=== PATIENT | female | born 1950 | race Caucasian/White ===

== ENCOUNTER → 2017-09-25 | Outpatient (CLI) | payer BC ==
[2014-10-10 16:44] VITALS: BP 170/87
[~2017-09-25] MED LIST: ASPERDRINK81 MG PO; CALCIUM CARB W/1 TAB PO; CELEBREX100 MG PO; DEXILANT60 MG PO; ESTROGENS0.3 MG PO; FLONASE0.05 MG/AC NS; HCTZ 25MG25 MG PO; HYDRODIURIL25 MG PO; KLOR-CON20 MEQ PO; LISINOPRIL40 MG PO; METFORMIN500 MG PO; MIRAPEX0.125 MG PO; NORCO 325 MG-51 TAB PO; PRAVASTATIN40 MG PO; PREMARIN0.3 MG PO; PRINIVIL10 MG PO; SAVELLA50 MG PO; SINGULAIR10 MG PO; TEMOVATE0.05% TP; ZOFRAN ODT8 MG PO; ZYRTEC10 MG PO
== END ==
LOC: RAD 15:46
DX: R22.42 Localized swelling, mass and lump, left lower limb (principal)

== ENCOUNTER → 2018-10-14 | Outpatient (CLI) | payer BC ==
[~2018-10-14] VITALS: Ht 165.1 cm; Wt 104.5 kg
[2018-10-14 13:01] LABS: HEMATOCRIT 42.2 % (37.0-47.0); HEMOGLOBIN 14.3 g/dL (12.5-16.0); MEAN PLATELET VOLUME 10.6 fl (7.4-10.4); RED BLOOD COUNT 4.73 M/mm3 (4.10-5.30); WHITE BLOOD COUNT 9.7 K/mm3 (4.8-10.8)
[2018-10-14 13:13] LABS: ALBUMIN 3.7 g/dL (3.4-4.8); CALCIUM 9.2 mg/dL (8.3-10.5); TOTAL BILIRUBIN 0.6 mg/dL (0.2-1.2); TOTAL PROTEIN 6.5 g/dL (6.2-8.1)
[2018-10-14 13:19] VITALS: BP 127/58
[2018-10-14 13:22] LABS: POTASSIUM 2.9 mmol/L (3.5-5.1)
[2018-10-14 13:23] LABS: URINE APPEARANCE HAZY; URINE BILIRUBIN NEGATIVE (NEGATIVE); URINE BLOOD 50 ery/uL (NEGATIVE); URINE COLOR YELLOW; URINE GLUCOSE NEGATIVE (NEGATIVE); URINE KETONE NEGATIVE (NEGATIVE); URINE LEUKOCYTE ESTERASE NEGATIVE (NEGATIVE); URINE NITRATE NEGATIVE (NEGATIVE); URINE PROTEIN(semi-quant) TRACE mg/dL (NEGATIVE); URINE UROBILINOGEN NORMAL (NORMAL)
--- NOTE | 2018-10-14 16:17 | NUR ---
PT SENT FROM [facility], JACOB HENDERSON APRN GIVES ORDERS FOR FLUIDS AND LABS. LABS RETURNED AND REPORTED TO ANTONELLA LING. NEW ORDERS GIVEN FOR PO K+, AND ANOTHER 500ML OF NS. BOTH GIVEN WITHOUT DIFFICULTY. PT DC'D TO HOME TO REST. CLINIC WILL CALL HER WITH INFORMAITON ON FOLLOW UP PER JACOB HENDERSON.
[2018-10-14 16:24] VITALS: BP 164/75
== END ==
LOC: AMSURD 11:44
PROVIDERS: Family Medicine
DX: E86.0 Dehydration (principal)
CPT/HCPCS: J7030; J7040

== ENCOUNTER 2020-01-29 14:35 | Inpatient (IN) | payer MEDICARE, BC ==
[~2020-01-29] VITALS: Ht 165.1 cm; Wt 104.0 kg
[2020-01-29] MEDS ORDERED: [UNRECOGNIZED DRUG - OTHER] NAS (15:31)
[2020-01-29] MEDS ORDERED: CELEBREX 200MG200 MG PO (15:32)
[2020-01-29] MEDS ORDERED: CLOPIDOGREL PO (15:32)
[2020-01-29] MEDS ORDERED: ADULT LOW DOSE81 MG PO (15:32)
[2020-01-29] MEDS ORDERED: NEURONTIN300 M1 PO (15:32)
[2020-01-29] MEDS ORDERED: GOOD NEIGHBOR M25 M1 PO (15:34)
[2020-01-29] MEDS ORDERED: ROXICODONE 55 MG/TAB PO (15:34)
[2020-01-29] MEDS ORDERED: DOCUSATE SODIUM1 TA3 PO (15:35)
[2020-01-29] MEDS ORDERED: ZANAFLEX CAPSULE2 MG PO (15:36)
[2020-01-29] MEDS ORDERED: LIPITOR20 M2 PO (15:36)
[2020-01-29 15:37] VITALS: BP 117/66
[2020-01-29] MEDS ORDERED: WELLBUTRIN SR150 M3 PO (15:37)
[2020-01-29] MEDS ORDERED: CALCIUM CARB W/1 TA1 PO (15:37)
[2020-01-29] MEDS ORDERED: CLOBETASOL PROP15 GM TP (15:38)
[2020-01-29] MEDS ORDERED: ATHLETE'S FOOT1% TP (15:38)
[2020-01-29] MEDS ORDERED: LEXAPRO 10MG10 MG PO (15:41)
[2020-01-29] MEDS ORDERED: ESTRACE1 M1 PO (15:42)
[2020-01-29] MEDS ORDERED: MAG64 110 MG-181 ECT PO (15:44)
[2020-01-29] MEDS ORDERED: HCTZ 25MG25 MG PO (15:44)
[2020-01-29] MEDS ORDERED: COZAAR 50MG50 MG/TAB PO (15:44)
[2020-01-29] MEDS ORDERED: OMEPRAZOLE40 MG PO (15:45)
[2020-01-29] MEDS ORDERED: K-TAB20 MEQ PO (15:46)
[2020-01-29] MEDS ORDERED: SINUS RINSE PR1 EACH NS (15:46)
[2020-01-29 15:51] LABS: ALBUMIN 3.4 g/dL (3.4-4.8); POTASSIUM 4.7 mmol/L (3.5-5.1)
[2020-01-29 15:52] LABS: CALCIUM 8.2 mg/dL (8.3-10.5)
[2020-01-29 15:53] LABS: TOTAL PROTEIN 6.3 g/dL (6.2-8.1)
[2020-01-29 15:55] LABS: TOTAL BILIRUBIN 0.8 mg/dL (0.2-1.2)
[2020-01-29 18:04] VITALS: BP 117/66
[2020-01-29 18:45] LABS: URINE APPEARANCE CLEAR; URINE BILIRUBIN NEGATIVE (NEGATIVE); URINE BLOOD 250 ery/uL (NEGATIVE); URINE COLOR LIGHT YELLOW; URINE GLUCOSE NEGATIVE (NEGATIVE); URINE KETONE NEGATIVE (NEGATIVE); URINE LEUKOCYTE ESTERASE NEGATIVE (NEGATIVE); URINE NITRATE NEGATIVE (NEGATIVE); URINE PROTEIN(semi-quant) TRACE mg/dL (NEGATIVE); URINE UROBILINOGEN NORMAL (NORMAL); URINE WBC 0-1 /hpf (0-3)
[2020-01-30 06:23] VITALS: BP 134/78
[2020-01-30 08:08] LABS: EOS # 0.1 (0.04-0.40); EOS % 1.3 % (1.0-5.0); HEMATOCRIT 33.9 % (37.0-47.0); HEMOGLOBIN 11.1 g/dL (12.5-16.0); LYMPH# 1.3 (1.50-4.00); MEAN CELL VOLUME 94 fl (78-100); MEAN CORPUSCULAR HEMOGLOBIN 31 pg (27-31); MEAN CORPUSCULAR HGB CONC 33 g/dL (33-37); MEAN PLATELET VOLUME 9.8 fl (7.4-10.4); MONO # 0.7 (0.20-0.80); NEU # 7.4 (1.40-6.50); PLATELET COUNT 254 K/mm3 (130-400); RED BLOOD COUNT 3.62 M/mm3 (4.10-5.30); RED CELL DISTRIBUTION WIDTH 12.9 % (11.5-14.5); WHITE BLOOD COUNT 9.6 K/mm3 (4.8-10.8)
[2020-01-30 17:59] VITALS: BP 166/90
[2020-01-31 05:50] VITALS: BP 139/65
[2020-01-31 17:52] VITALS: BP 189/83
[2020-02-01 05:53] VITALS: BP 179/79
[2020-02-01 10:00] LABS: EOS # 0.2 (0.04-0.40); EOS % 3.4 % (1.0-5.0); HEMATOCRIT 34.3 % (37.0-47.0); HEMOGLOBIN 11.3 g/dL (12.5-16.0); LYMPH# 1.3 (1.50-4.00); MEAN CELL VOLUME 95 fl (78-100); MEAN CORPUSCULAR HEMOGLOBIN 31 pg (27-31); MEAN CORPUSCULAR HGB CONC 33 g/dL (33-37); MEAN PLATELET VOLUME 9.5 fl (7.4-10.4); MONO # 0.6 (0.20-0.80); NEU # 3.4 (1.40-6.50); PLATELET COUNT 265 K/mm3 (130-400); RED BLOOD COUNT 3.63 M/mm3 (4.10-5.30); RED CELL DISTRIBUTION WIDTH 13.1 % (11.5-14.5); WHITE BLOOD COUNT 5.6 K/mm3 (4.8-10.8)
[2020-02-01 10:07] LABS: POTASSIUM 4.1 mmol/L (3.5-5.1)
[2020-02-01 10:08] LABS: CALCIUM 9.2 mg/dL (8.3-10.5)
[2020-02-01 10:59] LABS: ERYTHROCYTE SEDIMENTATION RATE 73 mm/hr (0-30)
[2020-02-01 18:14] VITALS: BP 166/89
[2020-02-02 05:26] VITALS: BP 175/84
[2020-02-02 17:21] VITALS: BP 148/86
[2020-02-03 05:26] VITALS: BP 148/80
[2020-02-03 17:18] VITALS: BP 165/82
[2020-02-04 05:34] VITALS: BP 156/82
[2020-02-04 17:56] VITALS: BP 183/81
[2020-02-04 17:57] VITALS: BP 180/76
[2020-02-04 20:00] VITALS: BP 169/77
[2020-02-05 05:41] VITALS: BP 166/79
[2020-02-05 17:08] VITALS: BP 170/82
[2020-02-06 05:49] VITALS: BP 158/69
[2020-02-06 17:10] VITALS: BP 157/79
[2020-02-07 05:52] VITALS: BP 136/60
[2020-02-07 18:30] VITALS: BP 119/74
[2020-02-08 05:42] VITALS: BP 143/66
[2020-02-08 17:42] VITALS: BP 170/71
[2020-02-09 05:25] VITALS: BP 152/75
[2020-02-09 17:43] VITALS: BP 115/76
[2020-02-10 05:24] VITALS: BP 150/76
[2020-02-10 17:30] VITALS: BP 163/86
== END 2020-02-10 17:15 | disposition home or self-care (01) | DRG 561 ==
LOC: MED/SURG 14:35
PROVIDERS: Family Medicine; ADMIT Nurse Practitioner Family
DX: Z47.1 Aftercare following joint replacement surgery (principal); K21.9 Gastro-esophageal reflux disease without esophagitis; I10 Essential (primary) hypertension; M79.7 Fibromyalgia; G47.33 Obstructive sleep apnea (adult) (pediatric); E11.9 Type 2 diabetes mellitus without complications; J32.9 Chronic sinusitis, unspecified; G89.29 Other chronic pain; G25.81 Restless legs syndrome; M54.42 Lumbago with sciatica, left side; R53.81 Other malaise; E78.5 Hyperlipidemia, unspecified; Z79.82 Long term (current) use of aspirin; Z79.891 Long term (current) use of opiate analgesic; Z79.84 Long term (current) use of oral hypoglycemic drugs; Z86.73 Personal history of transient ischemic attack (TIA), and cerebral infarction without residual deficits; Z96.653 Presence of artificial knee joint, bilateral; Z87.891 Personal history of nicotine dependence; Z88.0 Allergy status to penicillin; Z88.5 Allergy status to narcotic agent
CPT/HCPCS: J1650; J1815

== ENCOUNTER 2020-04-26 10:30 | Outpatient (RCR) | payer MEDICARE, BC ==
[~2020-04-26 10:30] MED LIST changes: +ADULT LOW DOSE81 MG PO; +ATHLETE'S FOOT1% TP; +CALCIUM CARB W/1 TA1 PO; +CELEBREX 200MG200 MG PO; +CLOBETASOL PROP15 GM TP; +CLOPIDOGREL PO; +COZAAR 50MG50 MG/TAB PO; +DOCUSATE SODIUM1 TA3 PO; +ESTRACE1 M1 PO; +GOOD NEIGHBOR M25 M1 PO; +K-TAB20 MEQ PO; +LEXAPRO 10MG10 MG PO; +LIPITOR20 M2 PO; +MAG64 110 MG-181 ECT PO; +NEURONTIN300 M1 PO; +OMEPRAZOLE40 MG PO; +ROXICODONE 55 MG/TAB PO; +SINUS RINSE PR1 EACH NS; +WELLBUTRIN SR150 M3 PO; +ZANAFLEX CAPSULE2 MG PO; +[UNRECOGNIZED DRUG - OTHER] NAS
== END 2020-04-26 11:00 | disposition home or self-care (01) ==
LOC: PT 10:30
DX: M17.11 Unilateral primary osteoarthritis, right knee (principal); Z96.651 Presence of right artificial knee joint

== ENCOUNTER 2020-04-29 14:00 | Outpatient (RCR) | payer MEDICARE, BC | END 2020-05-17 | disposition home or self-care (01) | LOC: OT | DX: R20.0 Anesthesia of skin (principal) ==

== ENCOUNTER 2020-10-05 15:44 | Emergency (ER) | payer MEDICARE, BC ==
[~2020-10-05 15:44] MED LIST changes: -CALCIUM CARB W/1 TA1 PO; +CALCIUM WITH VI1 TA1 PO
[2020-10-05] MEDS ORDERED: CYCLOBENZAPRINE10 M1 PO (16:11)
[2020-10-05] MEDS ORDERED: WELLBUTRIN XL150 M2 PO (16:11)
[2020-10-05] MEDS ORDERED: ATORVASTATIN CA20 MG PO (16:13)
[2020-10-05] MEDS ORDERED: TOPIRAMATE25 MG PO (16:19)
[2020-10-05] MEDS ORDERED: LOSARTAN POTASS50 M1 PO (16:20)
[2020-10-05] MEDS ORDERED: POTASSIUM CHLO20 ME4 PO (16:20)
[2020-10-05 16:36] LABS: BASO # 0.07 (0.02-0.10); EOS # 0.14 (0.04-0.40); EOS % 2.2 % (1.0-5.0); HEMATOCRIT 40.8 % (37.0-47.0); HEMOGLOBIN 13.5 g/dL (12.5-16.0); LYMPH# 1.97 (1.50-4.00); MEAN CELL VOLUME 94 fl (78-100); MEAN CORPUSCULAR HEMOGLOBIN 31 pg (27-31); MEAN CORPUSCULAR HGB CONC 33 g/dL (33-37); MEAN PLATELET VOLUME 11.6 fl (7.4-10.4); MONO # 0.65 (0.20-0.80); NEU # 3.62 (1.40-6.50); RED BLOOD COUNT 4.33 M/mm3 (4.10-5.30); WHITE BLOOD COUNT 6.5 K/mm3 (4.8-10.8)
[2020-10-05 16:48] LABS: ALBUMIN 3.8 g/dL (3.4-4.8); POTASSIUM 3.8 mmol/L (3.5-5.1); SODIUM 139 mmol/L (136-145)
[2020-10-05 16:49] LABS: CALCIUM 8.9 mg/dL (8.3-10.5)
[2020-10-05 16:50] LABS: GLUCOSE 158 mg/dL (65-105)
[2020-10-05 16:51] LABS: TOTAL PROTEIN 6.4 g/dL (6.2-8.1)
[2020-10-05 16:52] LABS: CARBON DIOXIDE 19 mmol/L (23-31); TOTAL BILIRUBIN 0.4 mg/dL (0.2-1.2)
[2020-10-05 16:56] LABS: AST-SGOT 20 U/L (5-34)
[2020-10-05 16:57] LABS: ALT/SGPT 20 U/L (0-55)
[2020-10-05 17:05] LABS: TROPONIN-I < 0.03 ng/mL (<0.030)
[2020-10-05 17:10] LABS: PARTIAL THROMBOPLASTIN TIME 22.1 SECONDS (21.0-32.0)
[2020-10-05 17:29] LABS: D-DIMER 0.47 mg/L FEU (0.15-0.50)
[2020-10-05 17:37] LABS: PLATELET COUNT 89 K/mm3 (130-400)
[2020-10-05 18:30] VITALS: BP 131/92
[2020-10-05 18:39] LABS: URINE APPEARANCE CLEAR; URINE COLOR YELLOW; URINE GLUCOSE NEGATIVE (NEGATIVE); URINE KETONE NEGATIVE (NEGATIVE); URINE PROTEIN(semi-quant) NEGATIVE (NEGATIVE)
[2020-10-05 18:40] LABS: URINE BILIRUBIN NEGATIVE (NEGATIVE); URINE BLOOD NEGATIVE (NEGATIVE); URINE LEUKOCYTE ESTERASE TRACE (NEGATIVE); URINE NITRATE NEGATIVE (NEGATIVE); URINE UROBILINOGEN NORMAL (NORMAL)
== END 2020-10-05 19:24 | disposition short-term general hospital (02) ==
LOC: ED 15:44
PROVIDERS: Nurse Practitioner Family
DX: I48.0 Paroxysmal atrial fibrillation (principal); R53.81 Other malaise; E11.9 Type 2 diabetes mellitus without complications; F41.9 Anxiety disorder, unspecified; E78.5 Hyperlipidemia, unspecified; I10 Essential (primary) hypertension; M79.7 Fibromyalgia; G89.29 Other chronic pain; M54.5 Low back pain; Z79.82 Long term (current) use of aspirin; Z20.822 Contact with and (suspected) exposure to COVID-19; Z79.899 Other long term (current) drug therapy
CPT/HCPCS: J7030

== ENCOUNTER 2021-03-09 13:50 | Outpatient (RCR) | payer MEDICARE, BC ==
[~2021-03-09 13:50] MED LIST changes: +ATORVASTATIN CA20 MG PO; +CYCLOBENZAPRINE10 M1 PO; +LOSARTAN POTASS50 M1 PO; +POTASSIUM CHLO20 ME4 PO; +TOPIRAMATE25 MG PO; +WELLBUTRIN XL150 M2 PO
== END 2021-05-13 23:59 | disposition home or self-care (01) ==
LOC: PT 13:50
DX: Z96.612 Presence of left artificial shoulder joint (principal)

== ENCOUNTER 2021-05-17 10:01 | Outpatient (RCR) | payer MEDICARE, BC | END 2021-06-13 | disposition home or self-care (01) | LOC: PT | DX: Z96.612 Presence of left artificial shoulder joint (principal) ==

== ENCOUNTER 2021-06-14 10:01 | Outpatient (RCR) | payer MEDICARE, BC | END 2021-06-29 17:00 | disposition home or self-care (01) | LOC: PT 10:01 | DX: Z96.612 Presence of left artificial shoulder joint (principal) | CPT/HCPCS: J2250 ==

== ENCOUNTER → 2021-07-06 | Day surgery (SDC) | payer MEDICARE, BC | LOC: MSO 06:09 | DX: H25.12 Age-related nuclear cataract, left eye (principal); Z98.890 Other specified postprocedural states | CPT/HCPCS: 00142; J0171; J2250; V2632 ==

== ENCOUNTER → 2021-11-23 | Outpatient (CLI) | payer MEDICARE, BC ==
[~2021-11-23] VITALS: Ht 165.1 cm; Wt 100.5 kg
[~2021-11-23] MED LIST changes: +ELIQUIS5 MG PO; +TOPROL XL 25MG25 MG PO
[2021-11-23 09:12] VITALS: BP 129/77
[2021-11-23 09:22] VITALS: BP 131/63
[2021-11-23 10:20] VITALS: BP 150/60
== END ==
LOC: AMSURD 08:55
DX: U07.1 COVID-19 (principal); E66.9 Obesity, unspecified; E11.9 Type 2 diabetes mellitus without complications; I25.10 Atherosclerotic heart disease of native coronary artery without angina pectoris
CPT/HCPCS: M0222; Q0222

== ENCOUNTER 2023-05-30 13:50 | Outpatient (RCR) | payer MEDICARE, BC | END 2023-06-13 | disposition home or self-care (01) | LOC: PT | DX: M19.011 Primary osteoarthritis, right shoulder (principal); Z96.611 Presence of right artificial shoulder joint ==

== ENCOUNTER 2023-06-20 08:00 | Outpatient (RCR) | payer MEDICARE, BC | END 2023-07-12 | disposition home or self-care (01) | LOC: PT | DX: M19.011 Primary osteoarthritis, right shoulder (principal); Z96.611 Presence of right artificial shoulder joint ==

== ENCOUNTER 2023-12-12 16:11 | Emergency (ER) | payer MEDICARE, BC ==
[~2023-12-12] VITALS: Ht 165.1 cm; Wt 99.9 kg
[2023-12-12 17:02] LABS: BASO # 0.04 K/mm3 (0.02-0.10); EOS % 1.5 % (1.0-5.0); HEMATOCRIT 41.2 % (37.0-47.0); HEMOGLOBIN 13.4 g/dL (12.5-16.0); LYMPH# 1.63 K/mm3 (1.50-4.00); MEAN CELL VOLUME 97 fl (78-100); MEAN CORPUSCULAR HEMOGLOBIN 32 pg (27-31); MEAN CORPUSCULAR HGB CONC 33 g/dL (33-37); MEAN PLATELET VOLUME 10.2 fl (7.4-10.4); MONO # 0.86 K/mm3 (0.20-0.80); NEU # 4.17 K/mm3 (1.40-6.50); PLATELET COUNT 193 K/mm3 (130-400); RED BLOOD COUNT 4.23 M/mm3 (4.10-5.30); WHITE BLOOD COUNT 6.8 K/mm3 (4.8-10.8)
[2023-12-12 17:13] LABS: CALCIUM 9.8 mg/dL (8.3-10.5)
[2023-12-12 17:14] LABS: TOTAL PROTEIN 6.9 g/dL (6.2-8.1)
[2023-12-12 17:16] LABS: TOTAL BILIRUBIN 0.5 mg/dL (0.2-1.2)
[2023-12-12] MEDS ORDERED: OZEMPIC1 MG/0.71 SQ (18:17)
[2023-12-12 20:46] VITALS: BP 143/77
== END 2023-12-12 20:46 | disposition home or self-care (01) ==
LOC: ED 16:11
PROVIDERS: Family Medicine
DX: R53.1 Weakness (principal); E86.0 Dehydration; R11.0 Nausea; R79.89 Other specified abnormal findings of blood chemistry; I48.91 Unspecified atrial fibrillation
CPT/HCPCS: J7120

== ENCOUNTER 2024-05-08 21:37 | Emergency (ER) | payer MEDICARE, BC ==
[~2024-05-08] VITALS: Ht 165.1 cm; Wt 96.8 kg
[~2024-05-08 21:37] MED LIST changes: +OZEMPIC1 MG/0.71 SQ
[2024-05-08] MEDS ORDERED: NS 1,000 ML IV ONE (22:00)
[2024-05-08] MEDS ORDERED: Metoprolol Tartrate 50 MG TAB PO ONE (22:15)
[2024-05-08] MEDS ORDERED: AMIODARONE200 MG PO (22:21)
[2024-05-08] MEDS ORDERED: CICLOPIROX6.6 ML (22:21)
[2024-05-08] MEDS ORDERED: LOPRESSOR 550 MG/TAB PO (22:21)
[2024-05-08] MEDS ORDERED: BENTYL 20MG20 MG/TAB PO (22:22)
[2024-05-08] MEDS ORDERED: ZOFRAN ODT4 MG PO (22:23)
[2024-05-08] MEDS ORDERED: SINGULAIR 110 MG/TAB PO (22:24)
[2024-05-08] MEDS ORDERED: FAMOTIDINE20 MG PO (22:24)
[2024-05-08 22:36] LABS: BASO # 0.03 K/mm3 (0.02-0.10); EOS # 0.11 K/mm3 (0.04-0.40); EOS % 1.6 % (1.0-5.0); HEMATOCRIT 41.5 % (37.0-47.0); HEMOGLOBIN 13.5 g/dL (12.5-16.0); LYMPH# 2.02 K/mm3 (1.50-4.00); MEAN CELL VOLUME 99 fl (78-100); MEAN CORPUSCULAR HEMOGLOBIN 32 pg (27-31); MEAN CORPUSCULAR HGB CONC 33 g/dL (33-37); MEAN PLATELET VOLUME 10.3 fl (7.4-10.4); MONO # 0.75 K/mm3 (0.20-0.80); NEU # 3.88 K/mm3 (1.40-6.50); PLATELET COUNT 183 K/mm3 (130-400); RED BLOOD COUNT 4.21 M/mm3 (4.10-5.30); RED CELL DISTRIBUTION WIDTH 13.1 % (11.5-14.5); WHITE BLOOD COUNT 6.8 K/mm3 (4.8-10.8)
[2024-05-08 22:39] LABS: SODIUM 139 mmol/L (136-145)
[2024-05-08 22:41] LABS: CALCIUM 9.4 mg/dL (8.3-10.5)
[2024-05-08 22:43] LABS: GLUCOSE 116 mg/dL (65-105); TOTAL PROTEIN 6.7 g/dL (6.2-8.1)
[2024-05-08 22:44] LABS: CARBON DIOXIDE 22 mmol/L (23-31); TOTAL BILIRUBIN 0.4 mg/dL (0.2-1.2)
[2024-05-08 22:48] LABS: AST-SGOT 20 U/L (5-34)
[2024-05-08 22:50] LABS: ALT/SGPT 23 U/L (0-55)
[2024-05-08 23:02] LABS: TROPONIN-I < 0.030 ng/mL (0.00-0.033)
[2024-05-08] MEDS ORDERED: CEFDINIR300 MG PO (23:42)
[2024-05-08] MEDS ORDERED: cefTRIAXone 1 G in Water For Injection,Sterile 10 ML IV ONE (23:45)
[2024-05-09 00:21] VITALS: BP 168/99
== END 2024-05-09 00:28 | disposition home or self-care (01) ==
LOC: ED 21:37
PROVIDERS: Family Medicine
DX: I48.91 Unspecified atrial fibrillation (principal); R79.89 Other specified abnormal findings of blood chemistry; Z79.01 Long term (current) use of anticoagulants
CPT/HCPCS: J0696; J7030